=== PATIENT | male | born 1970 | race African-American/Black ===

== ENCOUNTER 2017-03-23 11:57 | Emergency (ER) | payer OTHER ==
[~2017-03-23] VITALS: Ht 167.6 cm; Wt 91.4 kg
[2017-03-23 12:02] VITALS: TEMP 98.8
[2017-03-23 13:01] LABS: BASO % 0.4 % (0.0-2.0); EOS % 0.2 % (0-4.0); GRAN # 3.6 (1.4-6.5); GRAN % 67.9 % (42.2-75.2); HEMATOCRIT 40.5 % (42.0-52.0); HEMOGLOBIN 13.7 g/dl (13.5-18.0); LYMPH # 0.9 (1.2-3.4); LYMPH % 16.1 % (20.0-51.0); MEAN CELL VOLUME 91 fl (80.0-100.0); MEAN CORPUSCULAR HEMOGLOBIN 31 pg (27.0-31.0); MEAN CORPUSCULAR HGB CONC 34 g/dl (33.0-37.0); MEAN PLATELET VOLUME 10.8 fl (7.4-10.4); MONO # 0.8 (0.1-0.6); MONO % 15.2 % (1.7-9.3); PLATELET COUNT 141 K/mm3 (130-400); RED BLOOD COUNT 4.43 M/mm3 (4.20-5.60); REDCELL DISTRIBUTION WIDTH-CV 11.8 % (11.5-14.5); WHITE BLOOD COUNT 5.3 K/mm3 (4.8-10.8)
[2017-03-23 13:02] LABS: PH 6 (5-8); SQUAMOUS EPITHELIAL None Seen /hpf; URINE APPEARANCE Clear; URINE BACTERIA None Seen /hpf; URINE BILIRUBIN Negative (NEGATIVE); URINE BLOOD Negative (NEGATIVE); URINE COLOR Yellow; URINE GLUCOSE 3+ (NEGATIVE); URINE KETONE Negative (NEGATIVE); URINE RBC 0-2 /hpf; URINE WBC 0-2 /hpf
[2017-03-23 13:11] LABS: ADJUSTED CALCIUM 8.9 mg/dL (8.4-10.2); ALANINE AMINOTRANSFERASE 65 U/L (21-72); ALBUMIN 3.6 gm/dL (3.5-5.0); ALKALINE PHOSPHATASE 127 U/L (50-136); ANION GAP 9 mmol/L (7-16); BILIRUBIN,TOTAL 0.8 mg/dL (0.0-1.0); BLOOD UREA NITROGEN 13 mg/dL (9-20); CALCIUM 8.6 mg/dL (8.4-10.2); CARBON DIOXIDE 28 mmol/L (22-30); CHLORIDE 98 mmol/L (98-107); CREATININE, serum 0.84 mg/dL (0.66-1.25); LIPASE 151 U/L (23-300); SODIUM 135 mmol/L (137-145)
[2017-03-23 13:17] LABS: GLUCOSE 408 mg/dL (74-106)
[2017-03-23] MEDS ORDERED: PLAVIX 300MG T300 MG PO (14:43)
[2017-03-23 15:11] VITALS: BP 145/101; PULSE 96
== END 2017-03-23 15:12 | disposition home or self-care (01) ==
LOC: COL.ER 11:57
PROVIDERS: Physician Assistant
DX: E11.65 Type 2 diabetes mellitus with hyperglycemia (principal); T38.3X6A Underdosing of insulin and oral hypoglycemic [antidiabetic] drugs, initial encounter; I10 Essential (primary) hypertension; I25.2 Old myocardial infarction; Z95.5 Presence of coronary angioplasty implant and graft; Z76.0 Encounter for issue of repeat prescription; T45.526A Underdosing of antithrombotic drugs, initial encounter; Z91.120 Patient's intentional underdosing of medication regimen due to financial hardship
CPT/HCPCS: J1815; J7030

== ENCOUNTER 2017-09-14 14:27 | Inpatient (IN) | payer OTHER ==
[~2017-09-14] VITALS: Ht 167.6 cm; Wt 108.2 kg
[~2017-09-14 14:27] MED LIST: PLAVIX 300MG T300 MG PO
[2017-09-14] MEDS ORDERED: COREG12.5 MG PO (14:32)
[2017-09-14] MEDS ORDERED: ASPIRIN 81M81 MG/TA2 PO (14:32)
[2017-09-14] MEDS ORDERED: NEURONTIN600 MG/TAB PO (14:33)
[2017-09-14] MEDS ORDERED: NOVOLIN 70/30 710 ML SQ (14:33)
[2017-09-14] MEDS ORDERED: NORVASC 10MG10 MG PO (14:33)
[2017-09-14] MEDS ORDERED: LIPITOR 80MG80 MG PO (14:34)
[2017-09-14] MEDS ORDERED: GLUCOPHAGE500 MG/TAB PO (14:34)
[2017-09-14 15:13] LABS: BASO % 0.2 % (0.0-2.0); EOS # 0.1 (0.0-0.7); EOS % 0.7 % (0-4.0); GRAN # 6.3 (1.4-6.5); GRAN % 70.5 % (42.2-75.2); HEMATOCRIT 37.1 % (42.0-52.0); HEMOGLOBIN 12.3 g/dl (13.5-18.0); LYMPH # 1.4 (1.2-3.4); LYMPH % 15.6 % (20.0-51.0); MEAN CELL VOLUME 94 fl (80.0-100.0); MEAN CORPUSCULAR HEMOGLOBIN 31 pg (27.0-31.0); MEAN CORPUSCULAR HGB CONC 33 g/dl (33.0-37.0); MEAN PLATELET VOLUME 11.6 fl (7.4-10.4); MONO # 1.1 (0.1-0.6); MONO % 12.6 % (1.7-9.3); PLATELET COUNT 164 K/mm3 (130-400); RED BLOOD COUNT 3.97 M/mm3 (4.20-5.60); WHITE BLOOD COUNT 8.9 K/mm3 (4.8-10.8)
[2017-09-14 15:26] LABS: ADJUSTED CALCIUM 9.1 mg/dL (8.4-10.2); ALBUMIN 3.6 gm/dL (3.5-5.0); BILIRUBIN,TOTAL 1.1 mg/dL (0.0-1.0); C-REACTIVE PROTEIN 5.4 mg/dL (0.0-0.9); CALCIUM 8.8 mg/dL (8.4-10.2); CREATININE, serum 1.15 mg/dL (0.66-1.25); POTASSIUM 4.2 mmol/L (3.4-5.0); TOTAL PROTEIN 7.5 gm/dL (6.4-8.2)
[2017-09-14 17:11] LABS: COLLECTION METHOD CLEAN CATCH
[2017-09-14 17:27] LABS: HYALINE CAST >12 /lpf; MUCOUS Present /lpf; PH 5 (5-8); SQUAMOUS EPITHELIAL 0-2 /hpf; URINE APPEARANCE Clear; URINE BACTERIA None Seen /hpf; URINE BILIRUBIN Negative (NEGATIVE); URINE BLOOD Negative (NEGATIVE); URINE COLOR Yellow; URINE GLUCOSE 3+ (NEGATIVE); URINE KETONE Negative (NEGATIVE); URINE LEUKOCYTE ESTERASE Negative (NEGATIVE); URINE PROTEIN(semi-quant) 1+ (NEGATIVE); URINE RBC 0-2 /hpf; URINE UROBILINOGEN >=4.0 mg/dL (NEGATIVE)
[2017-09-14] MEDS ORDERED: SYNTHROID0.05 MG/TA PO (21:09)
[2017-09-14 21:12] VITALS: BP 127/79; PULSE 72; TEMP 98.4
[2017-09-15] VITALS: BP 156/81; PULSE 114; TEMP 99.4
[2017-09-15 04:00] VITALS: BP 143/89; PULSE 103; TEMP 100.9
[2017-09-15 08:00] VITALS: BP 131/88; PULSE 99; TEMP 98.8
[2017-09-15 15:01] VITALS: BP 129/75; PULSE 94; TEMP 97.8
[2017-09-15 18:00] VITALS: BP 134/18; PULSE 96; TEMP 98.9
[2017-09-15 20:48] VITALS: BP 108/70; PULSE 112; TEMP 98.3
[2017-09-16 00:04] VITALS: BP 128/71; PULSE 103; TEMP 100.3
[2017-09-16 02:56] VITALS: TEMP 100.4
[2017-09-16 06:25] LABS: MEAN CELL VOLUME 95 fl (80.0-100.0); MEAN CORPUSCULAR HGB CONC 33 g/dl (33.0-37.0); MEAN PLATELET VOLUME 11.6 fl (7.4-10.4); PLATELET COUNT 175 K/mm3 (130-400); RED BLOOD COUNT 3.75 M/mm3 (4.20-5.60); WHITE BLOOD COUNT 10.9 K/mm3 (4.8-10.8)
[2017-09-16 06:27] LABS: HEMATOCRIT 35.5 % (42.0-52.0); HEMOGLOBIN 11.6 g/dl (13.5-18.0); MEAN CORPUSCULAR HEMOGLOBIN 31 pg (27.0-31.0)
[2017-09-16 18:16] VITALS: BP 101/60; PULSE 82; TEMP 99.1
[2017-09-16 21:24] VITALS: BP 119/69; PULSE 85; TEMP 98.8
[2017-09-17 05:04] VITALS: BP 120/78; PULSE 80; TEMP 98.2
[2017-09-17 09:27] LABS: BASO % 0.1 % (0.0-2.0); GRAN # 10.7 (1.4-6.5); GRAN % 84.5 % (42.2-75.2); LYMPH # 0.9 (1.2-3.4); LYMPH % 6.9 % (20.0-51.0); MEAN CELL VOLUME 95 fl (80.0-100.0); MEAN CORPUSCULAR HGB CONC 33 g/dl (33.0-37.0); MEAN PLATELET VOLUME 11.6 fl (7.4-10.4); MONO % 7.9 % (1.7-9.3); PLATELET COUNT 204 K/mm3 (130-400); RED BLOOD COUNT 3.83 M/mm3 (4.20-5.60); WHITE BLOOD COUNT 12.7 K/mm3 (4.8-10.8)
[2017-09-17 09:31] LABS: HEMATOCRIT 36.4 % (42.0-52.0); HEMOGLOBIN 11.9 g/dl (13.5-18.0); MEAN CORPUSCULAR HEMOGLOBIN 31 pg (27.0-31.0)
[2017-09-17 09:37] LABS: CREATININE, serum 0.95 mg/dL (0.66-1.25); MAGNESIUM 2.4 mg/dL (1.6-2.3); POTASSIUM 4.3 mmol/L (3.4-5.0)
[2017-09-17 10:23] VITALS: BP 135/77; PULSE 87; TEMP 98.6
[2017-09-17 14:01] VITALS: BP 134/72; PULSE 94; TEMP 98.4
[2017-09-17 17:18] VITALS: BP 118/70; PULSE 90; TEMP 98.2
[2017-09-17 22:00] VITALS: BP 121/72; PULSE 87; TEMP 98.5
[2017-09-18 05:06] VITALS: BP 106/68; PULSE 83; TEMP 98.2
[2017-09-18 06:36] LABS: BASO % 0.2 % (0.0-2.0); EOS # 0.1 (0.0-0.7); EOS % 1.1 % (0-4.0); GRAN # 6.9 (1.4-6.5); GRAN % 73.8 % (42.2-75.2); LYMPH # 1.3 (1.2-3.4); LYMPH % 14.3 % (20.0-51.0); MEAN CELL VOLUME 96 fl (80.0-100.0); MEAN CORPUSCULAR HGB CONC 32 g/dl (33.0-37.0); MEAN PLATELET VOLUME 11.8 fl (7.4-10.4); MONO # 0.9 (0.1-0.6); MONO % 10.1 % (1.7-9.3); PLATELET COUNT 197 K/mm3 (130-400); RED BLOOD COUNT 3.64 M/mm3 (4.20-5.60); WHITE BLOOD COUNT 9.3 K/mm3 (4.8-10.8)
[2017-09-18 06:47] LABS: HEMATOCRIT 34.8 % (42.0-52.0); HEMOGLOBIN 11.2 g/dl (13.5-18.0); MEAN CORPUSCULAR HEMOGLOBIN 31 pg (27.0-31.0)
[2017-09-18 07:38] LABS: CALCIUM 8.1 mg/dL (8.4-10.2); CREATININE, serum 1.04 mg/dL (0.66-1.25)
[2017-09-18 10:12] VITALS: BP 130/78; PULSE 86
[2017-09-18 14:30] VITALS: BP 112/73; PULSE 80; TEMP 98
[2017-09-18 17:41] VITALS: BP 134/80; PULSE 96; TEMP 98.2
[2017-09-18 21:11] VITALS: BP 120/73; PULSE 93; TEMP 98
[2017-09-19 02:24] VITALS: BP 130/73; PULSE 91; TEMP 97.9
[2017-09-19 06:05] VITALS: BP 137/81; PULSE 85; TEMP 98
[2017-09-19 06:45] LABS: BASO % 0.1 % (0.0-2.0); EOS # 0.1 (0.0-0.7); EOS % 1.8 % (0-4.0); GRAN # 5.5 (1.4-6.5); GRAN % 70.3 % (42.2-75.2); LYMPH # 1.3 (1.2-3.4); LYMPH % 16.4 % (20.0-51.0); MEAN CELL VOLUME 94 fl (80.0-100.0); MEAN CORPUSCULAR HGB CONC 33 g/dl (33.0-37.0); MEAN PLATELET VOLUME 11.9 fl (7.4-10.4); MONO # 0.8 (0.1-0.6); MONO % 10.8 % (1.7-9.3); PLATELET COUNT 208 K/mm3 (130-400); RED BLOOD COUNT 3.55 M/mm3 (4.20-5.60); WHITE BLOOD COUNT 7.8 K/mm3 (4.8-10.8)
[2017-09-19 06:50] LABS: HEMATOCRIT 33.3 % (42.0-52.0); HEMOGLOBIN 10.9 g/dl (13.5-18.0); MEAN CORPUSCULAR HEMOGLOBIN 31 pg (27.0-31.0)
[2017-09-19 06:58] LABS: C-REACTIVE PROTEIN 4.6 mg/dL (0.0-0.9); CALCIUM 8.1 mg/dL (8.4-10.2); CREATININE, serum 0.89 mg/dL (0.66-1.25)
[2017-09-19 09:32] LABS: ALBUMIN 2.9 gm/dL (3.5-5.0); BILIRUBIN,TOTAL 0.3 mg/dL (0.0-1.0); TOTAL PROTEIN 6.5 gm/dL (6.4-8.2)
[2017-09-19 09:37] LABS: BILIRUBIN,DIRECT 0.3 mg/dL (0.0-0.4)
[2017-09-19 09:52] VITALS: BP 135/79; PULSE 95; TEMP 98.7
[2017-09-19 14:16] VITALS: BP 124/79; PULSE 83; TEMP 98.1
[2017-09-19 17:39] VITALS: BP 132/75; PULSE 91; TEMP 98.4
[2017-09-19 21:01] VITALS: BP 140/85; PULSE 88; TEMP 97.8
[2017-09-20 00:07] VITALS: BP 127/83; PULSE 86; TEMP 97.9
[2017-09-20 05:59] VITALS: BP 152/89; PULSE 86; TEMP 98.4
[2017-09-20 06:51] LABS: BASO % 0.3 % (0.0-2.0); EOS # 0.1 (0.0-0.7); EOS % 1.8 % (0-4.0); GRAN # 5.8 (1.4-6.5); GRAN % 74.2 % (42.2-75.2); HEMATOCRIT 33.9 % (42.0-52.0); HEMOGLOBIN 11.1 g/dl (13.5-18.0); LYMPH % 12.9 % (20.0-51.0); MEAN CELL VOLUME 94 fl (80.0-100.0); MEAN CORPUSCULAR HEMOGLOBIN 31 pg (27.0-31.0); MEAN CORPUSCULAR HGB CONC 33 g/dl (33.0-37.0); MEAN PLATELET VOLUME 11.4 fl (7.4-10.4); MONO # 0.8 (0.1-0.6); MONO % 10.2 % (1.7-9.3); PLATELET COUNT 226 K/mm3 (130-400); WHITE BLOOD COUNT 7.8 K/mm3 (4.8-10.8)
[2017-09-20 07:10] LABS: CALCIUM 8.4 mg/dL (8.4-10.2); CREATININE, serum 1.01 mg/dL (0.66-1.25)
[2017-09-20 09:49] VITALS: BP 140/81; PULSE 92; TEMP 98.4
[2017-09-20 14:07] VITALS: BP 137/83; PULSE 81; TEMP 98.6
[2017-09-20 17:57] VITALS: BP 138/80; PULSE 88; TEMP 98.1
[2017-09-20 21:52] VITALS: BP 111/77; PULSE 98; TEMP 98.8
[2017-09-21 05:47] VITALS: BP 142/83; PULSE 87; TEMP 98.5
[2017-09-21 06:53] LABS: CREATININE, serum 1.09 mg/dL (0.66-1.25); POTASSIUM 4.3 mmol/L (3.4-5.0)
[2017-09-21 08:48] VITALS: BP 127/78; PULSE 81; TEMP 97.6
[2017-09-21 13:13] VITALS: BP 126/76; PULSE 87; TEMP 98.2
[2017-09-21 17:02] VITALS: BP 120/75; PULSE 95; TEMP 97.6
[2017-09-21 21:50] VITALS: BP 137/78; PULSE 100; TEMP 98.3
[2017-09-22 05:27] VITALS: BP 132/81; PULSE 90; TEMP 98.4
[2017-09-22 09:09] VITALS: BP 131/73; PULSE 86; TEMP 97.9
[2017-09-22 14:02] VITALS: BP 121/78; PULSE 82; TEMP 97.1
[2017-09-22 17:17] VITALS: BP 135/85; PULSE 86
[2017-09-22 21:43] VITALS: BP 132/79; PULSE 81; TEMP 98.4
[2017-09-23 06:06] VITALS: BP 124/83; PULSE 80; TEMP 97.2
[2017-09-23 10:40] VITALS: BP 118/73; PULSE 81; TEMP 97.7
[2017-09-23 13:23] VITALS: BP 118/73; PULSE 83; TEMP 97.3
[2017-09-23 17:19] VITALS: BP 129/67; PULSE 93; TEMP 98.2
[2017-09-23 22:25] VITALS: BP 120/68; PULSE 94; TEMP 98.2
[2017-09-24 05:56] VITALS: BP 110/66; PULSE 77; TEMP 97.1
[2017-09-24 06:33] LABS: BASO % 0.2 % (0.0-2.0); EOS # 0.2 (0.0-0.7); EOS % 2.8 % (0-4.0); GRAN # 3.3 (1.4-6.5); GRAN % 61.3 % (42.2-75.2); LYMPH # 1.1 (1.2-3.4); LYMPH % 20.9 % (20.0-51.0); MEAN CELL VOLUME 95 fl (80.0-100.0); MEAN CORPUSCULAR HGB CONC 33 g/dl (33.0-37.0); MEAN PLATELET VOLUME 11.3 fl (7.4-10.4); MONO # 0.8 (0.1-0.6); MONO % 13.9 % (1.7-9.3); PLATELET COUNT 232 K/mm3 (130-400); RED BLOOD COUNT 3.69 M/mm3 (4.20-5.60); WHITE BLOOD COUNT 5.4 K/mm3 (4.8-10.8)
[2017-09-24 06:34] LABS: HEMOGLOBIN 11.4 g/dl (13.5-18.0); MEAN CORPUSCULAR HEMOGLOBIN 31 pg (27.0-31.0)
[2017-09-24 06:44] LABS: CALCIUM 9.2 mg/dL (8.4-10.2); CREATININE, serum 1.01 mg/dL (0.66-1.25); POTASSIUM 5.1 mmol/L (3.4-5.0)
[2017-09-24 10:20] VITALS: BP 139/78; PULSE 81; TEMP 98.7
[2017-09-24] MEDS ORDERED: LEVEMIR FLEX100 U/ML SQ (12:44)
[2017-09-24] MEDS ORDERED: TRADJENTA5 MG PO (12:53)
[2017-09-24] MEDS ORDERED: NOVOLOG FLEX100 U/ML SQ (12:53)
[2017-09-24] MEDS ORDERED: PERCOCET 325 MG1 TA2 PO (13:09)
[2017-09-24] MEDS ORDERED: BACTRIM DS 8001 TAB PO (13:09)
[2017-09-24 14:19] VITALS: BP 121/73; PULSE 76; TEMP 98.5
== END 2017-09-24 18:20 | disposition home or self-care (01) | DRG 638 ==
LOC: COL.ER 14:27 → SURG 17:41
PROVIDERS: Family Medicine; Physician Assistant; Urology
PROC: 0V954ZZ Drainage of Scrotum, Percutaneous Endoscopic Approach (ICD-10-PCS; principal; 2017-09-16 09:00)
DX: E11.628 Type 2 diabetes mellitus with other skin complications (principal); E87.1 Hypo-osmolality and hyponatremia; N49.2 Inflammatory disorders of scrotum; E11.65 Type 2 diabetes mellitus with hyperglycemia; Z79.4 Long term (current) use of insulin; I25.10 Atherosclerotic heart disease of native coronary artery without angina pectoris; I89.0 Lymphedema, not elsewhere classified; B96.20 Unspecified Escherichia coli [E. coli] as the cause of diseases classified elsewhere
CPT/HCPCS: 99223; 99232-AI; 99233-AI; J0690; J0696; J1100; J1170; J1650; J1815; J1885; J1940; J2270; J2405; J2543; J2704; J3010; J3370; J7030; J7050; Q9967

== ENCOUNTER 2021-03-30 11:03 | Day surgery (SDC) | payer MEDICARE, MEDICAID ==
[~2021-03-30] VITALS: Ht 167.7 cm; Wt 93.3 kg
[2021-03-30] VITALS (12 sets, daily range): BP systolic 146–177; BP diastolic 91–107; PULSE 83–88; TEMP 98.2
[~2021-03-30 11:03] MED LIST changes: +ASPIRIN 81M81 MG/TA2 PO; +BACTRIM DS 8001 TAB PO; +COREG12.5 MG PO; +DOXYCYCLINE 10100 MG PO; +GLUCOPHAGE500 MG/TAB PO; +LEVEMIR FLEX100 U/ML SQ; +LIPITOR 80MG80 MG PO; +NEURONTIN300 MG/CAP PO; +NORVASC 10MG10 MG PO; +NOVOLIN 70/30 710 ML SQ; +NOVOLOG FLEX100 U/ML SQ; +OMNICEF 300MG300 MG PO; +PERCOCET 325 MG1 TA2 PO; +SYNTHROID0.05 MG/TA PO; +TRADJENTA5 MG PO
[2021-03-30] MEDS ORDERED: PLAVIX 75MG TAB75 MG PO (11:47)
[2021-03-30] MEDS ORDERED: FLOMAX 0.40.4 MG/CAP PO (11:47)
[2021-03-30] MEDS ORDERED: ELIQUIS 5MG PO (11:50)
[2021-03-30] MEDS ORDERED: AFRIN 15 ML15 ML NS (11:51)
[2021-03-30] MEDS ORDERED: LASIX 40MG TABL40 MG PO (12:05)
[2021-03-30] MEDS ORDERED: NOVOLOG FLEX100 U/ML SQ (12:07)
[2021-03-30] MEDS ORDERED: LEVEMIR FLEX100 U/ML SQ (12:08)
[2021-03-30 12:32] LABS: HEMATOCRIT 32.6 % (42.0-52.0); HEMOGLOBIN 10.6 g/dl (13.5-18.0); MEAN CELL VOLUME 96 fl (80.0-100.0); MEAN CORPUSCULAR HEMOGLOBIN 31 pg (27.0-31.0); MEAN CORPUSCULAR HGB CONC 33 g/dl (33.0-37.0); MEAN PLATELET VOLUME 11.9 fl (7.4-10.4); PLATELET COUNT 172 K/mm3 (130-400); REDCELL DISTRIBUTION WIDTH-CV 13.2 % (11.5-14.5)
[2021-03-30 12:35] LABS: INR 1.1 (0.8-3.0); PROTHROMBIN TIME 12.4 SECONDS (9.7-12.8)
[2021-03-30 12:36] LABS: CALCIUM 8.2 mg/dL (8.4-10.2); CREATININE, serum 1.1 (0.66-1.25)
[2021-03-30 12:37] LABS: PARTIAL THROMBOPLASTIN TIME 28.6 SECONDS (26.0-37.0)
[2021-03-30] MEDS ORDERED: ASPIRIN 81M81 MG/TA2 PO (13:56)
--- NOTE | 2021-03-30 14:30 | NUR ---
Dr. Sahu in room to discuss possible transfer for cardiac bypass, pt agreeable. Verbal order given for PO coreg. Rt femoral puncture site remains soft to palpation. 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 Skin to rt upper leg warm to touch, color consistent with pt's skin tone. Pt instructed about bed rest and need to maintain neutral position. He expresses understanding. Call light in reach. Pt calling friends on phone to update them.
--- NOTE | 2021-03-30 15:45 | NUR ---
Dr Sahu calls to verify that pt is taking plavix. Pt had not provided this during review of med rec on arrival. Pt verifies he has been taking 75mg BID, including dose this morning. Dr. Sahu states that due to this, pt would not be able to have bypass procedure today, so he will discharge pt home today, with plan to have him follow up with [facility] next week for visit and arrangement of bypass procedure. Pt informed and expresses understanding.
--- NOTE | 2021-03-30 17:30 | NUR ---
PT RESTING COMFORTABLY ON COT, TALKING ON PHONE. BS REPORT RECEIVED FROM ZULAY CORONADO. RT GROIN SITE IS SOFT, DRESSING CDI, PT AWARE OF POC. WE REVIEWED DC AND FU INSTRUCTIONS AT THIS TIME WITH PT WHO VERBALIZED UNDERSTANDING.
--- NOTE | 2021-03-30 19:05 | NUR ---
PT WAS AMBULATORY WITH CANE TO BR AND IN ROOM AFTER BED REST WAS COMPLETED AT 1800. GAIT WAS STEADY, PT DENIED ANY DIZZINESS ETC. IV WAS DC'D WITH CATH INTACT, DRESSING WAS APPLIED. WE REVIEWED DC/FU AND RX INSTRUCTIONS AGAIN. PT DID VERBALIZE UNDERSTANDING AND PT WAS ENCOURAGED TO CALL DR. GALVEZ'S OFFICE WITH ANY QUESTIONS. PT WAS ESCORTED OUT VIA WHEELCHAIR AT 1830.
== END 2021-03-30 19:09 | disposition home or self-care (01) ==
LOC: COL.CAR 11:03
PROVIDERS: Internal Medicine Cardiovascular Disease
DX: I25.118 Atherosclerotic heart disease of native coronary artery with other forms of angina pectoris (principal); I11.0 Hypertensive heart disease with heart failure; I50.20 Unspecified systolic (congestive) heart failure; I26.99 Other pulmonary embolism without acute cor pulmonale; E11.9 Type 2 diabetes mellitus without complications; E11.40 Type 2 diabetes mellitus with diabetic neuropathy, unspecified; E78.5 Hyperlipidemia, unspecified; Z79.01 Long term (current) use of anticoagulants; Z79.899 Other long term (current) drug therapy; Z79.02 Long term (current) use of antithrombotics/antiplatelets; Z79.4 Long term (current) use of insulin; Z86.16 Personal history of COVID-19; Z89.511 Acquired absence of right leg below knee
CPT/HCPCS: C1769; C1887; C1894; J0153; J1644; J2250; J3010; J7030; Q9967

== ENCOUNTER 2021-06-08 09:51 | Day surgery (SDC) | payer MEDICARE, MEDICAID ==
[2021-06-08] VITALS (16 sets, daily range): BP systolic 117–176; BP diastolic 75–99; PULSE 76–91; TEMP 97.5–98.5
[~2021-06-08] VITALS: Ht 167.8 cm; Wt 89.9 kg
[~2021-06-08 09:51] MED LIST changes: +AFRIN 15 ML15 ML NS; +ELIQUIS 5MG PO; +FLOMAX 0.40.4 MG/CAP PO; +LASIX 40MG TABL40 MG PO; +PLAVIX 75MG TAB75 MG PO
[2021-06-08 10:58] LABS: HEMATOCRIT 33.2 % (42.0-52.0); HEMOGLOBIN 11.4 g/dl (13.5-18.0); MEAN CELL VOLUME 92 fl (80.0-100.0); MEAN CORPUSCULAR HEMOGLOBIN 32 pg (27.0-31.0); MEAN CORPUSCULAR HGB CONC 34 g/dl (33.0-37.0); MEAN PLATELET VOLUME 11.6 fl (7.4-10.4); PLATELET COUNT 193 K/mm3 (130-400); REDCELL DISTRIBUTION WIDTH-CV 12.5 % (11.5-14.5)
[2021-06-08] MEDS ORDERED: PLAVIX 75MG TAB75 MG PO (10:58)
[2021-06-08] MEDS ORDERED: LIPITOR20 MG PO (10:59)
[2021-06-08] MEDS ORDERED: LANTUS100 U/ML SQ (11:00)
[2021-06-08] MEDS ORDERED: INSULIN HUMA100 U/ML SQ (11:00)
[2021-06-08 11:04] LABS: INR 1.1 (0.8-3.0); PROTHROMBIN TIME 12.3 SECONDS (9.7-12.8)
[2021-06-08 11:12] LABS: CALCIUM 7.9 mg/dL (8.4-10.2); CREATININE, serum 1.15 (0.66-1.25); POTASSIUM 3.6 mmol/L (3.4-5.0)
[2021-06-08 11:13] LABS: PARTIAL THROMBOPLASTIN TIME 28.2 SECONDS (26.0-37.0)
[2021-06-09 03:11] VITALS: BP 142/84; PULSE 75; TEMP 98.2
[2021-06-09 08:15] VITALS: BP 146/80; PULSE 81; TEMP 98.2
== END 2021-06-09 10:45 | disposition home or self-care (01) ==
LOC: COL.CAR 09:51 → MEDICAL 09:51 → COL.CAR 06-09 10:45
PROVIDERS: Internal Medicine Cardiovascular Disease
DX: I25.10 Atherosclerotic heart disease of native coronary artery without angina pectoris (principal); R07.9 Chest pain, unspecified; I50.20 Unspecified systolic (congestive) heart failure; I10 Essential (primary) hypertension; E78.5 Hyperlipidemia, unspecified; I26.99 Other pulmonary embolism without acute cor pulmonale; Z89.511 Acquired absence of right leg below knee; Z79.01 Long term (current) use of anticoagulants; Z79.02 Long term (current) use of antithrombotics/antiplatelets; Z79.899 Other long term (current) drug therapy; Z20.822 Contact with and (suspected) exposure to COVID-19; Z83.3 Family history of diabetes mellitus
CPT/HCPCS: OP; C1725; C1760; C1769; C1874; C1887; C1894; C9600; C9601; J1644; J1815; J2250; J3010; J7030